=== PATIENT | male | born 1985 | race Caucasian/White ===

== ENCOUNTER 2018-08-25 20:20 | Emergency (ER) | payer OTHER, SELFPAY ==
[2018-08-25 20:35] VITALS: BP 130/72; PULSE 90; RESP 18; TEMP 36.6; O2SAT 95
--- NOTE | 2018-08-25 21:21 | DI.CT_ITS ---
SYMPTOM/DIAGNOSIS: LEFT BUTTOCK ABSCESS CT PELVIS: The study was carried out with intravenous injection of 100 cc Omnipaque 350. The rectum and anus appear normal. There is no apparent pathology in the visualized portions of the small bowel and colon. There is nothing to suggest an acute appendix. The bladder is unremarkable. The reproductive organs as visualized are unremarkable. There is no evidence of free air or free fluid. There is no lymphadenopathy. There is no fracture or dislocation. Inflammatory changes involving the left gluteal subcutaneous fat are noted extending to the inferior left ischial rectal fossa. No gluteal abscess is seen. No demonstrable communication between the skin or anus is identified. A small focus of subcutaneous edema and skin thickening is noted beneath the umbilicus. SUMMARY: Inflammatory changes in the left gluteal subcutaneous fat extending in to the inferior left ischial rectal fossa are demonstrated consistent with edema or cellulitis. There is no evidence of a gluteal abscess and there is no definable communication between the skin and anus. A small focus of subcutaneous edema and skin thickening is noted beneath the umbilicus.
--- NOTE | 2018-08-25 21:26 | W.ED.GENAD ---
Discharge Plan Disposition Patient Disposition: HOME Condition: Improving Discharge Details Chief Complaint: Cellulitis Clinical Impression: Left buttock abscess Primary Care Provider: Merle,Local ED Provider: Franci Kelley Home Meds and New Rx's Prescriptions: New sulfamethoxazole-trimethoprim [Bactrim DS] 800-160 mg tablet 2 tab PO BID 7 Days Qty: 28 RF: 0 doxycycline hyclate 100 mg tablet 100 mg PO BID 7 Days Qty: 14 RF: 0 Continued trazodone 50 mg Tablet 50 mg PO HS RF: 0 hydroxyzine HCl 50 mg Tablet 50 mg PO TID RF: 0 carbamazepine 200 mg Tablet 200 mg PO BID RF: 0 albuterol sulfate 2.5 mg/0.5 mL Solution For Nebulization 2.5 mg TID RF: 0 Alvesco 80 mcg/actuation Hfa Aerosol Inhaler 80 mcg Inhalation BID RF: 0 Discontinued sulfamethoxazole-trimethoprim [Bactrim DS] 800-160 mg Tablet 1 tab PO BID RF: 0 Discharge Instructions Instructions: Abscess (ED) Additional Instructions: Follow up with medical/nursing staff at the correctional facility in 2 days for wound check and packing removal. Stop taking the bactrim prescription that you have. You will be given to new prescriptions. One prescription will still be Bactrim but instead of taking 1 tab twice daily you will be taking 2 tabs twice daily. The other antibiotic prescription is doxycycline. Take both antibiotics until finished. Return immediately to the emergency department with any worsening or new concerning symptoms. Discharge Data Discharge Date/Time-TO BE ENTERED AT DEPARTURE: 08/26/18 00:35 Discharge Physician: Franci Kelley Medical Decision Making <Sohail Flowers NP - Last Filed: 08/27/18 16:37> Patient presenting to the emergency department chief complaint of abscess. Patient states 3 days ago he noted a small area to his left buttock that was irritated. Over the next 3 days it is increased. Patient is an incarcerated male and was placed up on Bactrim by the correctional facility staff. Patient notes some pain with urination and significant worsening of symptoms now ranging from discomfort from his buttock all the way into his testicle. Physical exam shows a significant erythematous indurated area to the left buttock ranging from the mid upper buttock going all the way into the perineum. Given significance of size and patient stating painful urination I do feel that labs and CT imaging is warranted. Pending results patient given ketorolac for pain control along with starting vancomycin. Patient does have small erythematous area to mid abdomen that does not appear fluctuant but is erythematous and slight induration. There is come some concern for MRSA. Pending results patient transferred care to Dr. Phu Whyte. <Phu Whyte MD - Last Filed: 08/27/18 09:28> Received signout by Alexis Flowers NP with plan to follow-up on CT and imaging. Please see MAX[facility] Salgado documentation regarding initial treatment and course. CT interpreted by radiology: IMPRESSION: 1. Inflammatory changes in the left gluteal subcutaneous fat extending into the inferior left ischial rectal fossa. Consistent with edema or cellulitis. 2. No gluteal abscess. No definable communication to the skin or anus. 3. Small focus of subcutaneous edema and skin thickening below the umbilicus. Additional cellulitis is possible. Labs reviewed and leukocytosis noted. Care signed out to Dr. Kelley. Plan to assess patient for possible I&D and determine disposition. HPI <Sohail Flowers NP - Last Filed: 08/27/18 16:37> General Mode of arrival: ambulatory. Date/Time Provider Initiated Documentation: 08/25/18 20:53. Limitations to Documentation: no limitations. Information obtained by: patient and RN notes reviewed. History of Present Illness 33 year old M presents to the emergency department with the chief complaint of buttock abcess, described as severe, with intensity rated at 10. Quality is described as constant, Patient started experiencing this day(s) (3) and it has been constant. No relieving factors improve symptom(s), No exacerbating factors reported . Patient did receive the following treatments prior to arrival, other (Bactrim) Related Data Home Medications Medication Instructions Recorded Confirmed Alvesco 80 mcg INHALATION BID 08/25/18 08/25/18 albuterol sulfate 2.5 mg TID 08/25/18 08/25/18 carbamazepine 200 mg PO BID 08/25/18 08/25/18 hydroxyzine HCl 50 mg PO TID 08/25/18 08/25/18 trazodone 50 mg PO HS 08/25/18 08/25/18 doxycycline hyclate 100 mg PO BID 7 Days #14 tab 08/26/18 sulfamethoxazole-trimethoprim 2 tab PO BID 7 Days #28 tab 08/26/18 [Bactrim DS] Previous Rx's Medication Instructions Recorded doxycycline hyclate 100 mg PO BID 7 Days #14 tab 08/26/18 sulfamethoxazole-trimethoprim 2 tab PO BID 7 Days #28 tab 08/26/18 [Bactrim DS] Allergies Allergy/AdvReac Type Severity Reaction Status Date / Time amoxicillin Allergy Severe Anaphylaxsi Unverified 08/25/18 20:39 s venom-wasp Allergy Unverified 08/25/18 20:40 General Stated Complaint: Cellulitis HALI: 4 Review of Systems <Sohail Flowers NP - Last Filed: 08/27/18 16:37> Constitutional Denies body ache(s), Denies chills and Denies fever(s) Cardiovascular Denies chest pain Gastrointestinal Denies abdominal pain, Denies nausea and Denies vomiting Genitourinary Reports dysuria and Denies testicular pain Integumentary/Breasts Reports as per HPI and Reports erythema PFSH <Sohail Flowers NP - Last Filed: 08/27/18 16:37> Social History Smoking/Tobacco Use Status: Former Tobacco Use Alcohol Intake: former Drug use: Never Substance use type: does not use Do you feel safe at home: Yes Do you feel safe in your relationship?: Yes Exam <Sohail Flowers NP - Last Filed: 08/27/18 16:37> Const General: cooperative, no acute distress and not ill appearing Orientation: alert, awake and oriented x3 HENMT Mouth: moist mucous membranes Resp Effort & Inspection: normal respiratory effort, able to speak in complete sentences and no respiratory distress Cardio Rhythm: regular rhythm GI Palpation: soft and other Auscultation: normal bowel sounds Rectal Exam: other (Patient has significant left buttock abscess ) Skin General skin exam: no rashes or lesions noted Neuro General: alert, awake and oriented x3 Course <Sohail Flowers NP - Last Filed: 08/27/18 16:37> Vital Signs Temperature 36.6 C 08/25/18 20:35 Pulse 90 08/25/18 20:35 Respiratory Rate 18 08/25/18 20:35 Blood Pressure 130/72 08/25/18 20:35 Pulse Oximetry 95 08/25/18 20:35 Temperature 36.6 C 08/25/18 20:35 Temperature Source Temporal Artery Scan 08/25/18 20:35 Pulse 90 08/25/18 20:35 Respiratory Rate 18 08/25/18 20:35 Respiratory Effort 08/25/18 20:47 Blood Pressure 130/72 08/25/18 20:35 Pulse Oximetry 95 08/25/18 20:35 Oxygen Delivery Method Room Air 08/25/18 20:35 Oxygen Flow Rate 0 08/25/18 20:35 Pain Level 10 08/25/18 20:35 Lab/Test Results Lab/Test Results: 08/25/18 21:25 Blood Blood Culture - Pending 08/25/18 21:25 Blood Blood Culture - Pending Sign Out <Sohail Flowers NP - Last Filed: 08/27/18 16:37> Sign Out Data: Sign Out Comment: Patient pending CT imaging results and lab results for concern of deep and significant left buttock abscess. Patient signed out to Dr. Phu Whyte. Last updated by Sohail Flowers NP at 08/25/18 22:03
--- NOTE | 2018-08-25 21:36 | ED.GENADUL_ITS ---
Discharge Plan Disposition Patient Disposition: HOME Condition: Improving Discharge Details Chief Complaint: Cellulitis Clinical Impression: Left buttock abscess Primary Care Provider: Merle,Local ED Provider: Franci Kelley Home Meds and New Rx's Prescriptions: New sulfamethoxazole-trimethoprim [Bactrim DS] 800-160 mg tablet 2 tab PO BID 7 Days Qty: 28 RF: 0 doxycycline hyclate 100 mg tablet 100 mg PO BID 7 Days Qty: 14 RF: 0 Continued trazodone 50 mg Tablet 50 mg PO HS RF: 0 hydroxyzine HCl 50 mg Tablet 50 mg PO TID RF: 0 carbamazepine 200 mg Tablet 200 mg PO BID RF: 0 albuterol sulfate 2.5 mg/0.5 mL Solution For Nebulization 2.5 mg TID RF: 0 Alvesco 80 mcg/actuation Hfa Aerosol Inhaler 80 mcg Inhalation BID RF: 0 Discontinued sulfamethoxazole-trimethoprim [Bactrim DS] 800-160 mg Tablet 1 tab PO BID RF: 0 Discharge Instructions Instructions: Abscess (ED) Additional Instructions: Follow up with medical/nursing staff at the correctional facility in 2 days for wound check and packing removal. Stop taking the bactrim prescription that you have. You will be given to new prescriptions. One prescription will still be Bactrim but instead of taking 1 tab twice daily you will be taking 2 tabs twice daily. The other antibiotic prescription is doxycycline. Take both antibiotics until finished. Return immediately to the emergency department with any worsening or new concerning symptoms. Discharge Data Discharge Date/Time-TO BE ENTERED AT DEPARTURE: 08/26/18 00:35 Discharge Physician: Franci Kelley Medical Decision Making <Sohail Flowers NP - Last Filed: 08/27/18 16:37> Patient presenting to the emergency department chief complaint of abscess. Patient states 3 days ago he noted a small area to his left buttock that was irritated. Over the next 3 days it is increased. Patient is an incarcerated male and was placed up on Bactrim by the correctional facility staff. Patient notes some pain with urination and significant worsening of symptoms now ranging from discomfort from his buttock all the way into his testicle. Physical exam shows a significant erythematous indurated area to the left buttock ranging from the mid upper buttock going all the way into the perineum. Given significance of size and patient stating painful urination I do feel that labs and CT imaging is warranted. Pending results patient given ketorolac for pain control along with starting vancomycin. Patient does have small erythematous area to mid abdomen that does not appear fluctuant but is erythematous and slight indurati on. There is come some concern for MRSA. Pending results patient transferred care to Dr. Phu Whyte. <Phu Whyte MD - Last Filed: 08/27/18 09:28> Received signout by Alexis Flowers NP with plan to follow-up on CT and imaging. Please see MAX[facility] Salgado documentation regarding initial treatment and course. CT interpreted by radiology: IMPRESSION: 1. Inflammatory changes in the left gluteal subcutaneous fat extending into the inferior left ischial rectal fossa. Consistent with edema or cellulitis. 2. No gluteal abscess. No definable communication to the skin or anus. 3. Small focus of subcutaneous edema and skin thickening below the umbilicus. Additional cellulitis is possible. Labs reviewed and leukocytosis noted. Care signed out to Dr. Kelley. Plan to assess patient for possible I&D and determine disposition. HPI <Sohail Flowers NP - Last Filed: 08/27/18 16:37> General Mode of arrival: ambulatory . Date/Time Provider Initiated Documentation: 08/25/18 20:53 . Limitations to Documentation: no limitations . Information obtained by: patient and RN notes reviewed . History of Present Illness 33 year old M presents to the emergency department with the chief complaint of buttock abcess, described as severe, with intensity rated at 10. Quality is described as constant, Patient started experiencing this day(s) (3) and it has been constant. No relieving factors improve symptom(s), No exacerbating factors reported . Patient did receive the foll owing treatments prior to arrival, other (Bactrim) Related Data Home Medications Medication Instructions Recorded Confirmed Alvesco 80 mcg INHALATION BID 08/25/18 08/25/18 albuterol sulfate 2.5 mg TID 08/25/18 08/25/18 carbamazepine 200 mg PO BID 08/25/18 08/25/18 hydroxyzine HCl 50 mg PO TID 08/25/18 08/25/18 trazodone 50 mg PO HS 08/25/18 08/25/18 doxycycline hyclate 100 mg PO BID 7 Days #14 tab 08/26/18 sulfamethoxazole-trimethoprim 2 tab PO BID 7 Days #28 tab 08/26/18 [Bactrim DS] Previous Rx's Medication Instructions Recorded doxycycline hyclate 100 mg PO BID 7 Days #14 tab 08/26/18 sulfamethoxazole-trimethoprim 2 tab PO BID 7 Days #28 tab 08/26/18 [Bactrim DS] Allergies Allergy/AdvReac Type Severity Reaction Status Date / Time amoxicillin Allergy Severe Anaphylaxsi Unverified 08/25/18 20:39 s venom-wasp Allergy Unverified 08/25/18 20:40 General Stated Complaint: Cellulitis HALI: 4 Review of Systems <Sohail Flowers NP - Last Filed: 08/27/18 16:37> Constitutional Denies body ache(s), Denies chills and Denies fever(s) Cardiovascular Denies chest pain Gastrointestinal Denies abdominal pain, Denies nausea and Denies vomiting Genitourinary Reports dysuria and Denies testicular pain Integumentary/Breasts Reports as per HPI and Reports erythema PFSH <Sohail Flowers NP - Last Filed: 08/27/18 16:37> Social History Smoking/Tobacco Use Status: Former Tobacco Use Alcohol Intake: former Drug use: Never Substance use type: does not use Do you feel safe at home: Yes Do you feel safe in your relationship?: Yes Exam <Sohail Flowers NP - Last Filed: 08/27/18 16:37> Const General: cooperative, no acute distress and not ill appearing Orientation: alert, awake and oriented x3 HENMT Mouth: moist mucous membranes Resp Effort & Inspection: normal respiratory effort, able to speak in complete sentences and no respiratory distress Cardio Rhythm: regular rhythm GI Palpation: soft and other Auscultation: normal bowel sounds Rectal Exam: other (Patient has significant left buttock abscess ) Skin General skin exam: no rashes or lesions noted Neuro General: alert, awake and oriented x3 Course <Sohail Flowers NP - Last Filed: 08/27/18 16:37> Vital Signs Temperature 36.6 C 08/25/18 20:35 Pulse 90 08/25/18 20:35 Respiratory Rate 18 08/25/18 20:35 Blood Pressure 130/72 08/25/18 20:35 Pulse Oximetry 95 08/25/18 20:35 Temperature 36.6 C 08/25/18 20:35 Temperature Source Temporal Artery Scan 08/25/18 20:35 Pulse 90 08/25/18 20:35 Respiratory Rate 18 08/25/18 20:35 Respiratory Effort 08/25/18 20:47 Blood Pressure 130/72 08/25/18 20:35 Pulse Oximetry 95 08/25/18 20:35 Oxygen Delivery Method Room Air 08/25/18 20:35 Oxygen Flow Rate 0 08/25/18 20:35 Pain Level 10 08/25/18 20:35 Lab/Test Results Lab/Test Results: 08/25/18 21:25 Blood Blood Culture - Pending 08/25/18 21:25 Blood Blood Culture - Pending Sign Out <Sohail Flowers NP - Last Filed: 08/27/18 16:37> Sign Out Data: Sign Out Comment: Patient pending CT imaging results and lab results for concern of deep and significant left buttock abscess. Patient signed out to Dr. Phu Whyte. Last updated by Sohail Flowers NP at 08/25/18 22:03
[2018-08-25] MEDS: Omnipaque 350 MG/ML 100 ML BTL IV (21:45)
[2018-08-25 21:49] LABS: Abs Immature Grans 0.03 k/cumm (0.0-0.09); Absolute Basophil Count 0.01 k/cumm (0.0-0.2); Absolute Eosinophil Count 0.23 k/cumm (0.0-0.7); Absolute Lymphocyte Count 2.44 k/cumm (1.2-3.4); Absolute Monocyte Count 1.37 k/cumm (0.11-0.7); Basophils % 0.1; Eosinophils % 1.7; HCT 38.5 % (40.0-50.0); HGB 12.6 g/dL (13.5-17.5); Immature Grans % 0.2; Lymphocytes % 18.1; Mean Corp. HGB Concentration 32.7 g/dL (32.0-36.0); Mean Corpuscular Hemoglobin 27.9 pg (27.0-33.0); Mean Corpuscular Volume 85.4 fL (80-95); Mean Platelet Volume 11.1 fL (8.0-11.0); Monocytes % 10.2; Neutrophils % 69.7; Platelet Count 148 x1000/uL (130-400); RBC 4.51 m/cumm (4.50-6.00); RBC Distribution Width 14.3 % (11.8-14.1); White Blood Cell Count 13.48 k/cumm (4.4-10.8)
[2018-08-25] MEDS: Ketorolac 30 MG/ML VIAL IVP (21:55)
[2018-08-25] MEDS: VANCOMYCIN 1,500 MG in Normal Saline 250 ML 166.6666 MG IVPB (22:08)
[2018-08-25 22:14] LABS: ALT 26 U/L (12-78); AST 14 U/L (15-37); Albumin 3.7 g/dL (3.4-5.0); Alkaline Phosphatase 118 U/L (46-116); Anion Gap 11.3 mmol/L (3-11); BUN 15 mg/dL (7-18); Bilirubin, Total 0.7 mg/dL (0.2-1.0); CO2 26.7 mmol/L (21.0-32.0); CREATININE 1.35 mg/dL (0.70-1.30); Calcium 8.7 mg/dL (8.5-10.1); Chloride 99 mmol/L (98-107); Glucose 91 mg/dL (70-100); Potassium 3.6 mmol/L (3.5-5.1); Sodium 137 mmol/L (136-145)
--- NOTE | 2018-08-25 22:26 | DI.VRAD_ITS ---
EXAM: CT Pelvis With Contrast EXAM DATE/TIME: 08/25/2018 9:25 PM CLINICAL HISTORY: 33 years old, male; Signs and symptoms; Other: Left buttock abscess TECHNIQUE: Imaging protocol: Axial computed tomography images of the pelvis with intravenous contrast. Coronal and sagittal reformatted images were created and reviewed. Radiation optimization: All CT scans at this facility use at least one of these dose optimization techniques: automated exposure control; mA and/or kV adjustment per patient size (includes targeted exams where dose is matched to clinical indication); or iterative reconstruction. Contrast material: omnipaque 350 Contrast volume: 100 ml Contrast route: iv COMPARISON: No relevant prior studies available. FINDINGS: Stomach and bowel: The rectum and anus are normal in CT morphology. No acute pathology in the visualized small bowel or colon. Appendix: No evidence of appendicitis. Bladder: No mass. Reproductive: Normal as visualized. Intraperitoneal space: No free air. No significant fluid collection. Lymph nodes: No enlarged lymph nodes. Bones/joints: No acute fracture. No dislocation. Soft tissues: Inflammatory changes in the left gluteal subcutaneous fat extending into the inferior left ischial rectal fossa. No gluteal abscess. No definable communication to the skin or anus. Small focus of subcutaneous edema and skin thickening below the umbilicus. IMPRESSION: 1. Inflammatory changes in the left gluteal subcutaneous fat extending into the inferior left ischial rectal fossa. Consistent with edema or cellulitis. 2. No gluteal abscess. No definable communication to the skin or anus. 3. Small focus of subcutaneous edema and skin thickening below the umbilicus. Additional cellulitis is possible. Dictated and Authenticated by: Andria Oconnor MD. Ordering:GUSTAVO Sauceda MD
--- NOTE | 2018-08-25 23:29 | ED.GENADUL_ITS ---
Discharge Plan Disposition Patient Disposition: HOME Condition: Improving Discharge Details Chief Complaint: Cellulitis Clinical Impression: Left buttock abscess Primary Care Provider: Merle,Local ED Provider: Franci Kelley Home Meds and New Rx's Prescriptions: New sulfamethoxazole-trimethoprim [Bactrim DS] 800-160 mg tablet 2 tab PO BID 7 Days Qty: 28 RF: 0 doxycycline hyclate 100 mg tablet 100 mg PO BID 7 Days Qty: 14 RF: 0 Continued trazodone 50 mg Tablet 50 mg PO HS RF: 0 hydroxyzine HCl 50 mg Tablet 50 mg PO TID RF: 0 carbamazepine 200 mg Tablet 200 mg PO BID RF: 0 albuterol sulfate 2.5 mg/0.5 mL Solution For Nebulization 2.5 mg TID RF: 0 Alvesco 80 mcg/actuation Hfa Aerosol Inhaler 80 mcg Inhalation BID RF: 0 Discontinued sulfamethoxazole-trimethoprim [Bactrim DS] 800-160 mg Tablet 1 tab PO BID RF: 0 Discharge Instructions Instructions: Abscess (ED) Additional Instructions: Follow up with medical/nursing staff at the correctional facility in 2 days for wound check and packing removal. Stop taking the bactrim prescription that you have. You will be given to new prescriptions. One prescription will still be Bactrim but instead of taking 1 tab twice daily you will be taking 2 tabs twice daily. The other antibiotic prescription is doxycycline. Take both antibiotics until finished. Return immediately to the emergency department with any worsening or new concerning symptoms. Discharge Data Discharge Date/Time-TO BE ENTERED AT DEPARTURE: 08/26/18 00:35 Discharge Physician: Franci Kelley Medical Decision Making Please see Alexis Flowers's note for initial presentation, exam and plan. Patient is a 33-year-old male with a history of seizures and anxiety who presents from the correctional facility with left buttock abscess and cellulitis for the past 3 days. He was started on Bactrim yesterday and he has taken 4 doses. Workup on arrival included lab work and CT pelvis for assessment for deeper abscess. Patient was given 1 dose of IV vancomycin. Labs and imaging reviewed and note a white blood cell count of 13. Normal electrolytes. CT pelvis noted Inflammatory changes in the left gluteal subcutaneous fat extending into the inferior left ischial rectal fossa. Consistent with edema or cellulitis. 2. No gluteal abscess. No definable communication to the skin or anus. Assessment of the left buttock noted an area of fluctuance in the center. To assess whether there is an abscess, the area was first punctured with an 18- gauge needle and some pus drainage was expressed. The area was then cleaned with betadine and incised with an 11 blade with large amount of pus drainage expressed followed by irrigation and packing. As patient appears nontoxic and admits to improvement after I and D, I do not see an indication for admission for IV antibiotics. Case discussed with surgery on-call regarding presentation and CT findings. Recommends Bactrim and doxycycline. Patient had been taking 1 tab of Bactrim twice daily, will increase this to 2 tabs twice daily. Will discharge back to the correctional facility with prescriptions for Bactrim and doxycycline. Instructed that patient follow-up with medical/nursing staff in the next 2 days for wound evaluation and packing removal. Medical Records Medical records reviewed: Yes I reviewed the patient's medical records. Imaging Data Radiologic Study: Radiologist's impression: CT Pelvis With Contrast EXAM DATE/TIME: 08/25/2018 9:25 PM CLINICAL HISTORY: 33 years old, male; Signs and symptoms; Other: Left buttock abscess TECHNIQUE: Imaging protocol: Axial computed tomography images of the pelvis with intravenous contrast. Coronal and sagittal reformatted images were created and reviewed. Radiation optimization: All CT scans at this facility use at least one of these dose optimization techniques: automated exposure control; mA and/or kV adjustment per patient size (includes targeted exams where dose is matched to clinical indication); or iterative reconstruction. Contrast material: omnipaque 350 Contrast volume: 100 ml Contrast route: iv COMPARISON: No relevant prior studies available. FINDINGS: Stomach and bowel: The rectum and anus are normal in CT morphology. No acute pathology in the visualized small bowel or colon. Appendix: No evidence of appendicitis. Bladder: No mass. Reproductive: Normal as visualized. Intraperitoneal space: No free air. No significant fluid collection. Lymph nodes: No enlarged lymph nodes. Bones/joints: No acute fracture. No dislocation. Soft tissues: Inflammatory changes in the left gluteal subcutaneous fat extending into the inferior left ischial rectal fossa. No gluteal abscess. No definable communication to the skin or anus. Small focus of subcutaneous edema and skin thickening below the umbilicus. IMPRESSION: 1. Inflammatory changes in the left gluteal subcutaneous fat extending into the inferior left ischial rectal fossa. Consistent with edema or cellulitis. 2. No gluteal abscess. No definable communication to the skin or anus. 3. Small focus of subcutaneous edema and skin thickening below the umbilicus. Additional cellulitis is possible. Lab Data Lab results reviewed: Yes I reviewed the patient's lab results. 08/25/18 23:37 Blood Blood Culture - Pending 08/25/18 22:40 Blood Blood Culture - Pending 08/25/18 22:10 Blood Blood Culture - Pending Laboratory Tests Range/Units 08/25/18 08/25/18 21:40 21:40 WBC (4.4-10.8) k/cumm 13.48 H RBC (4.50-6.00) m/cumm 4.51 Hgb (13.5-17.5) g/dL 12.6 L Hct (40.0-50.0) % 38.5 L MCV (80-95) fL 85.4 MCH (27.0-33.0) pg 27.9 MCHC (32.0-36.0) g/dL 32.7 RDW (11.8-14.1) % 14.3 H Plt Count (130-400) x1000/uL 148 MPV (8.0-11.0) fL 11.1 H Immature Gran % 0.2 Neutrophils % 69.7 Lymphocytes % 18.1 Monocytes % 10.2 Eosinophils % 1.7 Basophils % 0.1 Absolute Neutrophils (1.2-6.7) k/cumm 9.40 H Absolute Lymphocytes (1.2-3.4) k/cumm 2.44 Absolute Monocytes (0.11-0.7) k/cumm 1.37 H Absolute Eosinophils (0.0-0.7) k/cumm 0.23 Absolute Basophils (0.0-0.2) k/cumm 0.01 Sodium (136-145) mmol/L 137 Potassium (3.5-5.1) mmol/L 3.6 Chloride (98-107) mmol/L 99 Carbon Dioxide (21.0-32.0) mmol/L 26.7 Anion Gap (3-11) mmol/L 11.3 H BUN (7-18) mg/dL 15 Creatinine (0.70-1.30) mg/dL 1.35 H Estimated GFR/1.73 m2 (mL/min/1.73m2) >= 60.00 Glucose (70-100) mg/dL 91 Calcium (8.5-10.1) mg/dL 8.7 Total Bilirubin (0.2-1.0) mg/dL 0.7 AST (15-37) U/L 14 L ALT (12-78) U/L 26 Alkaline Phosphatase (46-116) U/L 118 H Total Protein (6.4-8.2) g/dL 8.0 Albumin (3.4-5.0) g/dL 3.7 HPI General Mode of arrival: ambulatory . Date/Time Provider Initiated Documentation: 08/25/18 20:53 . Limitations to Documentation: no limitations . Information obtained by: patient and RN notes reviewed . History of Present Illness with intensity rated at 10. Quality is described as constant, No relieving factors improve symptom(s), No exacerbating factors reported . Patient did receive the following treatments prior to arrival, other (Bactrim) Related Data Home Medications Medication Instructions Recorded Confirmed Alvesco 80 mcg INHALATION BID 08/25/18 08/25/18 albuterol sulfate 2.5 mg TID 08/25/18 08/25/18 carbamazepine 200 mg PO BID 08/25/18 08/25/18 hydroxyzine HCl 50 mg PO TID 08/25/18 08/25/18 trazodone 50 mg PO HS 08/25/18 08/25/18 doxycycline hyclate 100 mg PO BID 7 Days #14 tab 08/26/18 sulfamethoxazole-trimethoprim 2 tab PO BID 7 Days #28 tab 08/26/18 [Bactrim DS] Previous Rx's Medication Instructions Recorded doxycycline hyclate 100 mg PO BID 7 Days #14 tab 08/26/18 sulfamethoxazole-trimethoprim 2 tab PO BID 7 Days #28 tab 08/26/18 [Bactrim DS] Allergies Allergy/AdvReac Type Severity Reaction Status Date / Time amoxicillin Allergy Severe Anaphylaxsi Unverified 08/25/18 20:39 s venom-wasp Allergy Unverified 08/25/18 20:40 General Stated Complaint: Cellulitis HALI: 4 PFSH Social History Smoking/Tobacco Use Status: Former Tobacco Use Alcohol Intake: former Drug use: Never Substance use type: does not use Do you feel safe at home: Yes Do you feel safe in your relationship?: Yes Course Vital Signs Temperature 97.9 F 08/25/18 20:35 Pulse 90 08/25/18 20:35 Respiratory Rate 18 08/25/18 20:35 Blood Pressure 130/72 08/25/18 20:35 Pulse Oximetry 95 08/25/18 20:35 Temperature 97.9 F 08/25/18 20:35 Temperature Source Temporal Artery Scan 08/25/18 20:35 Pulse 90 08/25/18 20:35 Respiratory Rate 18 08/25/18 20:35 Respiratory Effort 08/25/18 20:47 Blood Pressure 130/72 08/25/18 20:35 Pulse Oximetry 95 08/25/18 20:35 Oxygen Delivery Method Room Air 08/25/18 20:35 Oxygen Flow Rate 0 08/25/18 20:35 Pain Level 10 08/25/18 20:35 Lab/Test Results Lab/Test Results: 08/25/18 22:40 Blood Blood Culture - Pending 08/25/18 22:10 Blood Blood Culture - Pending Laboratory Tests Range/Units 08/25/18 08/25/18 21:40 21:40 WBC (4.4-10.8) k/cumm 13.48 H RBC (4.50-6.00) m/cumm 4.51 Hgb (13.5-17.5) g/dL 12.6 L Hct (40.0-50.0) % 38.5 L MCV (80-95) fL 85.4 MCH (27.0-33.0) pg 27.9 MCHC (32.0-36.0) g/dL 32.7 RDW (11.8-14.1) % 14.3 H Plt Count (130-400) x1000/uL 148 MPV (8.0-11.0) fL 11.1 H Immature Gran % 0.2 Neutrophils % 69.7 Lymphocytes % 18.1 Monocytes % 10.2 Eosinophils % 1.7 Basophils % 0.1 Absolute Neutrophils (1.2-6.7) k/cumm 9.40 H Absolute Lymphocytes (1.2-3.4) k/cumm 2.44 Absolute Monocytes (0.11-0.7) k/cumm 1.37 H Absolute Eosinophils (0.0-0.7) k/cumm 0.23 Absolute Basophils (0.0-0.2) k/cumm 0.01 Sodium (136-145) mmol/L 137 Potassium (3.5-5.1) mmol/L 3.6 Chloride (98-107) mmol/L 99 Carbon Dioxide (21.0-32.0) mmol/L 26.7 Anion Gap (3-11) mmol/L 11.3 H BUN (7-18) mg/dL 15 Creatinine (0.70-1.30) mg/dL 1.35 H Estimated GFR/1.73 m2 (mL/min/1.73m2) >= 60.00 Glucose (70-100) mg/dL 91 Calcium (8.5-10.1) mg/dL 8.7 Total Bilirubin (0.2-1.0) mg/dL 0.7 AST (15-37) U/L 14 L ALT (12-78) U/L 26 Alkaline Phosphatase (46-116) U/L 118 H Total Protein (6.4-8.2) g/dL 8.0 Albumin (3.4-5.0) g/dL 3.7 Procedures Abscess I/D Site: Other (Left buttock) Side (if applicable): Left Local Anesthetic: Lidocaine 1% Amount of anesthesia used (mL): 5 Technique: Incised with #11 Blade Amount of fluid expressed (mL): 6 Irrigation: Yes Packing used?: Iodoform Sign Out Sign Out Data: Sign Out Comment: Patient pending CT imaging results and lab results for concern of deep and significant left buttock abscess. Patient signed out to Dr. Phu Whyte. Last updated by Sohail Flowers NP at 08/25/18 22:03
[2018-08-26 00:14] VITALS: TEMP 36.4
[2018-08-26] MEDS: Sulfameth/Trimeth DS TAB 2 TAB PO (00:24)
[2018-08-26] MEDS: Doxycycline Hyclate 100 MG CAP PO (00:24)
== END 2018-08-26 00:35 | disposition home or self-care (01) ==
PROVIDERS: Nurse Practitioner Family; Emergency Provider Physician Assistant
DX: L03.317 Cellulitis of buttock (principal); L02.31 Cutaneous abscess of buttock
CPT/HCPCS: 10061; 36415; 80053; 81025; 87040; 96365; 96366; 96375; 99283; 99285; 72193; 85025; 99281; J1885; J3490

== ENCOUNTER 2020-11-06 12:30 | Emergency (ER) | payer MEDICAID, SELFPAY ==
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
[2020-11-06 12:33] VITALS: BP 116/70; PULSE 80; RESP 16; TEMP 36.6; O2SAT 98
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
[2020-11-06 13:46] VITALS: BP 115/68; PULSE 86; RESP 18; TEMP 36.6; O2SAT 97
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
[2020-11-06 14:03] LABS: Abs Immature Grans 0.02 10^3/uL (0.0-0.06); Absolute Basophil Count 0.01 10^3/uL (0.0-0.2); Absolute Lymphocyte Count 2.61 10^3/uL (1.2-3.4); Absolute Monocyte Count 0.87 10^3/uL (0.1-0.8); Basophils % 0.1; Eosinophils % 0.4; HCT 40.5 % (40.0-50.0); HGB 13.1 g/dL (13.5-17.5); Immature Grans % 0.2; MCHC 32.3 % (32.0-36.0); MCV 86.5 fL (80-95); MPV 11.7 fL (8.0-11.0); Monocytes % 7.7; Neutrophils % 68.6; Nucleated RBC 0 %; Platelet Count 142 10^3/uL (130-400); RBC 4.68 10^6/uL (4.36-5.78); RDW 14.9 % (11.8-14.1); RDW-SD 47.5 fL; WBC 11.34 10^3/uL (4.4-10.8)
[2020-11-06 14:05] LABS: Absolute Eosinophil Count 0.05 10^3/uL (0.0-0.7); Absolute Neutrophil Count 7.78 10^3/uL (1.2-6.7)
[2020-11-06 14:17] LABS: ALT 23 U/L (16-63); AST 22 U/L (15-37); Albumin 3.6 g/dL (3.4-5.0); Alkaline Phosphatase 113 U/L (46-116); Anion Gap 11.1 mmol/L (3-11); BUN 8 mg/dL (7-18); Bilirubin, Total 0.6 mg/dL (0.2-1.0); CO2 24.9 mmol/L (21.0-32.0); CREATININE 0.9 mg/dL (0.70-1.30); Calcium 8.2 mg/dL (8.5-10.1); Chloride 101 mmol/L (98-107); Glucose 81 mg/dL (74-106); Lipase 38 U/L (73-393); Potassium 3.4 mmol/L (3.5-5.1); Sodium 137 mmol/L (136-145); Total Protein 6.9 g/dL (6.4-8.2)
[2020-11-06 14:57] VITALS: BP 124/74; PULSE 89; RESP 18; TEMP 36.5; O2SAT 98
== END 2020-11-06 15:05 | disposition home or self-care (01) ==
PROVIDERS: Emergency Provider Physician Assistant
DX: S60.212A Contusion of left wrist, initial encounter (principal); S09.90XA Unspecified injury of head, initial encounter; S20.211A Contusion of right front wall of thorax, initial encounter; S20.212A Contusion of left front wall of thorax, initial encounter; Y04.0XXA Assault by unarmed brawl or fight, initial encounter; F10.10 Alcohol abuse, uncomplicated
CPT/HCPCS: 74177; 80053; 83690; 99285; 70450; 71260; 72125; 73110; 73130; 85025; 99284